=== PATIENT | female | born 1980 | race Caucasian/White ===

== ENCOUNTER 2022-11-14 11:51 | Emergency (ER) | payer SELFPAY ==
[2022-11-14] MEDS ORDERED: cefTRIAXone (ROCEPHIN) 500 MG VIAL ONE (12:24)
[2022-11-14] MEDS ORDERED: Lidocaine 1% MPF 2 ML VIAL ONE (12:26)
[2022-11-14 13:24] LABS: Bilirubin Neg (Negative); Blood, Urine 10 (Negative); Clarity Clear (Clear); Glucose, Urine (Dipstick) Normal (Negative); Ketone, Urine Negative (Negative); Leukocyte Negative (Negative); Nitrite Negative (Negative); Protein, Urine (Dipstick) 15 mg/dl (Neg-Trace); Urobilinogen Normal mg/dL (Less than 2)
[2022-11-14 13:47] LABS: Bacteria/HPF 1+ HPF (None Seen); CAUTI Indications for Culture Pelvic or flank pain; RBC/HPF 0-3 HPF (0-3); Urine Culture Reflex No No; WBC/HPF None Seen HPF (0-3)
[2022-11-14 20:08] LABS: Chlam.trachomatis by PCR,Urine Not Detected (NotDetected); GC N.gonorrhoeae PCR,UrineVOID Not Detected (NotDetected)
== END 2022-11-14 12:56 | disposition home or self-care (01) ==
LOC: CSHERS 11:51
DX: R30.0 Dysuria (principal)
CPT/HCPCS: 81001; 87491; 87591; 96372; 99283; J0696

== ENCOUNTER 2023-11-13 12:05 | Outpatient (CLI) | payer BC | END 2023-11-13 12:06 | disposition home or self-care (01) | LOC: CSHMAMMO 12:05 | PROVIDERS: ATTEND Family Medicine | DX: Z12.31 Encounter for screening mammogram for malignant neoplasm of breast (principal) | CPT/HCPCS: 77063; 77067 ==